=== PATIENT | male | born 1980 | race Caucasian/White ===

== ENCOUNTER 2016-12-06 20:48 | Emergency (ER) | payer OTHER ==
--- NOTE | 2016-12-06 22:06 | ED NURSING NOTES ---
Clinical Report - Nurses [facility] [place] [address] 12/06/2016 20:48 Patient: JAY CAPPS TRIAGE Triage time 21:01. Acuity: LEVEL 4. Chief Complaint: NECK PAIN and BACK PAIN. --21:08 Joce Bonds R.N. 21:00 12/06/16. BP: 125/79. HR: 77. RR: 14. O2 saturation: 98%. Temp: 98 F (oral). Pain level now: 01/18. --21:08 Joce Bonds R.N. Weight: 81.6 kg. Height/Length: 69 inches. BMI: 26.6. --21:06 Joce Bonds R.N. Medications Prazosin HCl Oral. --21:03 Joce Bonds R.N. Valtrex Oral. --21:04 Joce Bonds R.N. Citalopram Hydrobromide Oral. --21:04 Joce Bonds R.N. Omeprazole Oral. --21:04 Joce Bonds R.N. Medication/allergy information source: the patient. --21:08 Joce Bonds R.N. Allergies No Known Drug Allergy. --22:15 Joce Bonds R.N. History Arrived by private vehicle. Historian: patient. ( Neck and mid to upper back pain for about a week, denies injury or trauma. Pain shoots up to the neck with pressure on the back. Worse when turning head.). Onset was gradual. Symptoms still present (1 weeks ago). He has had tingling, (neck). No history of recent trauma. 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 SOCIAL HX: Never smoker. Alcohol use; consumes beer occasionally. --21:08 Joce Bonds R.N. PROBLEMS: Gastroesophageal Reflux Disease. PTSD. --21:05 Joce Bonds R.N. Interventions ID band on patient. To room. --21:08 Joce Bonds R.N. PHYSICAL ASSESSMENT Ambulatory to room. GENERAL / NEURO / PSYCH: Alert. Oriented X 4. Appears in no acute distress. RESPIRATORY: Respirations not labored. Chest nontender. Breath sounds within normal limits. CVS: Normal heart rate and rhythm. Capillary refill less than 2 seconds. GI / : Abdomen soft and nontender. Bowel sounds within normal limits. EXTREMITIES: Sensation intact in extremities. ROM of extremities within normal limits. BACK: Limited ROM of the neck (increasing pain on movement). Soft tissue tenderness. --21:10 Joce Bonds R.N. NURSING PROGRESS NOTES Neuro-vascular extremity check. Head of bed elevated. Call light placed in reach. Side rails up x 1. Bed placed in lowest position. Brakes of bed on. Patient ready for evaluation- chart flagged. --21:11 Jcoe Bonds R.N. DISPOSITION / DISCHARGE Condition at departure: improved. ( pain/spasm is ok when not turning his head). No learning barriers present. Discharge instructions provided and reviewed with the patient. Reviewed medication(s) side effects, precautions, dosing and course information. Prescription(s) given to the patient. Reviewed referral to a primary care physician for followup. Patient verbalized understanding. Written instructions provided in [employer]. The patient was discharged home. He left the Emergency Department ambulatory and via private vehicle. Patient driving. --22:13 Joce Bonds R.N. 22:12 12/06/16. BP: 121/74. HR: 72. RR: 14. O2 saturation: 100%. Temp: 98.3 F (oral). Pain level now: 12/18. --22:13 Joce Bonds R.N. Departure time: 22:14. --22:14 Joce Bonds R.N. Locked/Released at 12/06/2016 22:15 by Joce Bonds R.N.
--- NOTE | 2016-12-06 22:06 | ED CLINICAL REPORT ---
Clinical Report - Physicians/Mid Levels [facility] [address] [place] [address] 12/06/2016 20:48 Patient: JAY CAPPS Time Seen: 21:16. Arrived- By private vehicle. Historian- patient. HISTORY OF PRESENT ILLNESS Chief Complaint: NECK PAIN and BACK PAIN. Modifying factors- worsened by rotation of the head to the right or left, neck flexion, coughing or taking deep breaths. Not relieved by anything. Onset- about 1 week ago and it is still present. It is described as being moderate in degree. It is described as being in the area of the left side of the upper thoracic spine, right side of the cervical spine and right side of the upper thoracic spine, left interscapular area and right interscapular area. The quality is noted to be "pain" (tightness). No bladder dysfunction, bowel dysfunction, sensory loss or motor loss. Additional history - Patient states that the symptoms started vaguely but have become stronger for the last week. He denies fever or injury. 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 Patient denies an injury. No other injury. Similar symptoms previously: None. Recent medical care: Not recently seen/assessed. REVIEW OF SYSTEMS No fever, chills, eye discomfort, headache or sore throat. No cough, difficulty breathing, chest pain, skin rash or abdominal pain. No nausea, vomiting, diarrhea, black stools or difficulty with urination. No urinary frequency, hematuria or bloody stools. All systems otherwise negative, except as recorded above. PAST HISTORY Problems: Gastroesophageal Reflux Disease. PTSD. Additional Surgeries: no known surgeries. Medications: Omeprazole Oral. Citalopram Hydrobromide Oral. Valtrex Oral. Prazosin HCl Oral. Allergies: No Known Drug Allergy. SOCIAL HISTORY Never smoker. Occasional alcohol use. No drug use. ADDITIONAL NOTES The nursing notes have been reviewed. PHYSICAL EXAM Vital Signs: 12/06/2016 21:00 BP: 125/79. HR: 77. RR: 14. O2 saturation: 98%. Temp: 98 F. Pain level now: 8/10. Have been reviewed. Appearance: Alert. No acute distress. HEENT: Normal external inspection. Eyes: Pupils equal, round and reactive to light. Neck: Normal inspection. Neck nontender. Painless ROM. CVS: Normal heart rate and rhythm. Heart sounds normal. Pulses normal. Respiratory: No respiratory distress. Breath sounds normal. Back: Moderate soft tissue tenderness (Pt has tenderness over the trapezius distribution bilaterally.). Mild muscle spasm present in the thoracic area. Mildly limited ROM in the back- in the cervical spine: decreased flexion, right lateral bending and left lateral bending. No vertebral point tenderness. Skin: Skin warm and dry. Normal skin color. No rash. Normal skin turgor. Extremities: Extremities exhibit normal ROM. Extremities nontender. Neuro: (Grossly intact.). LABS, X-RAYS, AND EKG Pulse Oximetry: 12/06/2016 21:00 O2 saturation: 98%. (FIO2 - room air). Interpretation: normal. PROGRESS AND PROCEDURES Course of Care: I discussed with the patient that he does not have any worrisome signs for a serious cause of back pain. We have discussed symptomatic management of his muscle spasms including heat and massage as well as pharmacotherapy as needed. Patient did decline to have any analgesia in the emergency department. I did discuss with him that should his symptoms continue on for more than another couple of weeks, he should see his primary care physician for reevaluation and discuss whether an MRI would be appropriate at that time. At this point in time I do not find evidence that the patient is in need of further workup in the emergency department. Patient counseled in person regarding the patient's stable condition, diagnosis and need for follow-up. Concerns were addressed. Old medical records reviewed. Disposition: Discharged. Condition: stable. CLINICAL IMPRESSION Acute nontraumatic thoracic back pain. INSTRUCTIONS Apply ice for 20 minutes three times a day as needed and until better. Don't apply ice directly to skin and don't use while asleep. (Try heat and massage to help with your symptoms, as well.). Warnings: GENERAL WARNINGS: Return or contact your physician immediately if your condition worsens or changes unexpectedly, if not improving as expected, or if other problems arise. Your Current Medications: CONTINUE TAKING THE FOLLOWING MEDICATIONS: Citalopram Hydrobromide Oral. Omeprazole Oral. Prazosin HCl Oral. Valtrex Oral. Prescription Medications: Hydrocodone/APAP 5mg / 325mg: take 1-2 orally every 4 hours as needed for pain. Dispense ten (10). No refill. Flexeril 10 mg: take 1 orally every 8 hours as needed for muscle spasm or pain. Dispense ten (10). No refills. Substitution is permissible. Follow-up: Follow up with your doctor in two weeks if not better. Understanding of the discharge instructions verbalized by patient. (Electronically signed by Anna Oviedo MD 12/07/2016 5:01)
--- NOTE | 2016-12-06 22:06 | ED NURSING NOTES ---
Clinical Report - Nurses [facility] [place] [address] 12/06/2016 20:48 Patient: JAY CAPPS TRIAGE Triage time 21:01. Acuity: LEVEL 4. Chief Complaint: NECK PAIN and BACK PAIN. --21:08 Joce Bonds R.N. 21:00 12/06/16. BP: 125/79. HR: 77. RR: 14. O2 saturation: 98%. Temp: 98 F (oral). Pain level now: 01/18. --21:08 Joce Bonds R.N. Weight: 81.6 kg. Height/Length: 69 inches. BMI: 26.6. --21:06 Joce Bonds R.N. Medications Prazosin HCl Oral. --21:03 Joce Bonds R.N. Valtrex Oral. --21:04 Joce Bonds R.N. Citalopram Hydrobromide Oral. --21:04 Joce Bonds R.N. Omeprazole Oral. --21:04 Joce Bonds R.N. Medication/allergy information source: the patient. --21:08 Joce Bonds R.N. Allergies No Known Drug Allergy. --22:15 Joce Bonds R.N. History Arrived by private vehicle. Historian: patient. ( Neck and mid to upper back pain for about a week, denies injury or trauma. Pain shoots up to the neck with pressure on the back. Worse when turning head.). Onset was gradual. Symptoms still present (1 weeks ago). He has had tingling, (neck). No history of recent trauma. 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 Took ibuprofen. SOCIAL HX: Never smoker. Alcohol use; consumes beer occasionally. --21:08 Joce Bonds R.N. PROBLEMS: Gastroesophageal Reflux Disease. PTSD. --21:05 Joce Bonds R.N. Interventions ID band on patient. To room. --21:08 Joce Bonds R.N. PHYSICAL ASSESSMENT Ambulatory to room. GENERAL / NEURO / PSYCH: Alert. Oriented X 4. Appears in no acute distress. RESPIRATORY: Respirations not labored. Chest nontender. Breath sounds within normal limits. CVS: Normal heart rate and rhythm. Capillary refill less than 2 seconds. GI / : Abdomen soft and nontender. Bowel sounds within normal limits. EXTREMITIES: Sensation intact in extremities. ROM of extremities within normal limits. BACK: Limited ROM of the neck (increasing pain on movement). Soft tissue tenderness. --21:10 Joce Bonds R.N. NURSING PROGRESS NOTES Neuro-vascular extremity check. Head of bed elevated. Call light placed in reach. Side rails up x 1. Bed placed in lowest position. Brakes of bed on. Patient ready for evaluation- chart flagged. --21:11 Joce Bonds R.N. DISPOSITION / DISCHARGE Condition at departure: improved. ( pain/spasm is ok when not turning his head). No learning barriers present. Discharge instructions provided and reviewed with the patient. Reviewed medication(s) side effects, precautions, dosing and course information. Prescription(s) given to the patient. Reviewed referral to a primary care physician for followup. Patient verbalized understanding. Written instructions provided in [place]. The patient was discharged home. He left the Emergency Department ambulatory and via private vehicle. Patient driving. --22:13 Joce Bonds R.N. 22:12 12/06/16. BP: 121/74. HR: 72. RR: 14. O2 saturation: 100%. Temp: 98.3 F (oral). Pain level now: 12/18. --22:13 Joce Bonds R.N. Departure time: 22:14. --22:14 Joce Bonds R.N. Locked/Released at 12/06/2016 22:15 by Joce Bonds R.N.
--- NOTE | 2016-12-07 05:01 | ED MAR SUMMARY ---
..... Medication Administration Record [facility] [address] [place], [place] [id number] Patient: JAY CAPPS Visit ID: [id number] 36y, M Weight: 81.6 kg Height/Length: 69 in BMI: 26.6 ALLERGIES: No Known Drug Allergy
--- NOTE | 2016-12-07 05:01 | ED MAR SUMMARY ---
..... Medication Administration Record [facility] [address] [place], [place] [id number] Patient: JAY CAPPS Visit ID: [id number] 36y, M Weight: 81.6 kg Height/Length: 69 in BMI: 26.6 ALLERGIES: No Known Drug Allergy
--- NOTE | 2016-12-07 05:01 | ED DISCHARGE INSTRUCTIONS ---
Patient: JAY CAPPS General Instructions [facility] VisitID: [id number] [place] [address] 36y, M Registration Date/Time: 12/06/2016 Acute nontraumatic thoracic back pain. INSTRUCTIONS Apply ice for 20 minutes three times a day as needed and until better. Don't apply ice directly to skin and don't use while asleep. (Try heat and massage to help with your symptoms, as well.). Warnings: GENERAL WARNINGS: Return or contact your physician immediately if your condition worsens or changes unexpectedly, if not improving as expected, or if other problems arise. Your Current Medications: CONTINUE TAKING THE FOLLOWING MEDICATIONS: Citalopram Hydrobromide Oral. Omeprazole Oral. Prazosin HCl Oral. Valtrex Oral. Prescription Medications: Hydrocodone/APAP 5mg / 325mg: take 1-2 orally every 4 hours as needed for pain. Dispense ten (10). No refill. Flexeril 10 mg: take 1 orally every 8 hours as needed for muscle spasm or pain. Dispense ten (10). No refills. Substitution is permissible. Follow-up: Follow up with your doctor in two weeks if not better. Understanding of the discharge instructions verbalized by patient. ADDITIONAL INFORMATION Back Spasm [No Trauma] Spasm of the back muscles can occur after a sudden forceful twisting or bending force (such as in a car accident), after a simple awkward movement, or after lifting something heavy with poor body positioning. In either case, muscle spasm is often present and adds to the pain.Sleeping in an awkward position or on a poor quality mattress can also cause this. Some persons respond to emotional stress by tensing the muscles of their back. The treatment described below will usually help the pain to go away in 5-7 days. Pain that continues may require further evaluation or other types of treatment such as physical therapy. Unless you had a physical injury (for example, a car accident or fall), x-rays are usually not ordered for the initial evaluation of back pain. If pain continues and does not respond to medical treatment, x-rays and other tests may be performed at a later time. Home Care: You may need to stay in bed the first few days. But, as soon as possible, begin sitting or walking to avoid problems with prolonged bed rest (muscle weakness, worsening back stiffness and pain, blood clots in the legs). When in bed, try to find a position of comfort. A firm mattress is best. Try lying flat on your back with pillows under your knees. You can also try lying on your side with your knees bent up toward your chest and a pillow between your knees. Avoid prolonged sitting. This puts more stress on the lower back than standing or walking. Some persons find relief with heat (hot shower, hot bath, or heating pad) and massage, while others prefer cold packs (crushed or cubed ice in a plastic bag, wrapped in a towel). Try both and use the method that feels best for 20 minutes several times a day. You may use acetaminophen (Tylenol) or ibuprofen (Motrin, Advil) to control pain, unless another pain medicine was prescribed. [NOTE: If you have chronic liver or kidney disease or ever had a stomach ulcer or GI bleeding, talk with your doctor before using these medicines.] Gentle stretching will help your back heal faster. Perform this simple routine 2-3 times a day until your back is feeling better. LOW BACK STRETCH Lie on your back with your knees bent and both feet on the ground. Slowly raise your left knee to your chest as you flatten your lower back against the floor. Hold for 5 seconds. Relax and repeat the exercise with your right knee. Do 10 of these exercises for each leg. Repeat, hugging both knees to your chest at the same time. Be aware of safe lifting methods and do not lift anything over 15 pounds until all the pain is gone. Follow Up with your doctor or this facility if your symptoms do not start to improve after one week. Physical therapy or further tests may be needed. [NOTE: If x-rays were taken, they will be reviewed by a radiologist. You will be notified of any new findings that may affect your care.] Return Promptly or contact your doctor if any of the following occurs: Pain becomes worse or spreads to your legs Weakness or numbness in one or both legs Loss of bowel or bladder control Numbness in the groin or genital area Unexplained fever over 100.4F (38.0C) Burning or pain when passing urine You have been given the following additional information: Back Spasm, No Trauma (Electronically signed by Anna Oviedo MD 12/07/2016 5:01)
--- NOTE | 2016-12-07 05:01 | ED MED RECONCILIATION SUMMARY ---
Patient: JAY CAPPS Medication Reconciliation Report [facility] VisitID: [id number] [address] [place] [address] 36y, M Registration Date/Time: 12/06/2016 Weight: 81.6 kg Height/Length: 69 in. BMI: 26.6 ALLERGIES: No Known Drug Allergy The patient's Home Medications are listed below: CONTINUE TAKING THE FOLLOWING MEDICATIONS: Citalopram Hydrobromide Oral Omeprazole Oral Prazosin HCl Oral Valtrex Oral The source(s) of the original Home Medication information: patient The following Medications were given to the patient in the Emergency Department: None. The following Medications were prescribed to the patient: Hydrocodone/APAP 5mg / 325mg: take 1-2 orally every 4 hours as needed for pain. Dispense ten (10). No refill. -- Anna Oviedo MD Flexeril 10 mg: take 1 orally every 8 hours as needed for muscle spasm or pain. Dispense ten (10). No refills. Substitution is permissible. -- Anna Oviedo MD
--- NOTE | 2016-12-07 05:01 | ED MED RECONCILIATION SUMMARY ---
Patient: JAY CAPPS Medication Reconciliation Report [facility] VisitID: [id number] [address] [place] [address] 36y, M Registration Date/Time: 12/06/2016 Weight: 81.6 kg Height/Length: 69 in. BMI: 26.6 ALLERGIES: No Known Drug Allergy The patient's Home Medications are listed below: CONTINUE TAKING THE FOLLOWING MEDICATIONS: Citalopram Hydrobromide Oral Omeprazole Oral Prazosin HCl Oral Valtrex Oral The source(s) of the original Home Medication information: patient The following Medications were given to the patient in the Emergency Department: None. The following Medications were prescribed to the patient: Hydrocodone/APAP 5mg / 325mg: take 1-2 orally every 4 hours as needed for pain. Dispense ten (10). No refill. -- Anna Oviedo MD Flexeril 10 mg: take 1 orally every 8 hours as needed for muscle spasm or pain. Dispense ten (10). No refills. Substitution is permissible. -- Anna Oviedo MD
== END 2016-12-06 22:19 | disposition home or self-care (01) ==
LOC: ED SRH 20:48
DX: M54.6 Pain in thoracic spine (principal); K21.9 Gastro-esophageal reflux disease without esophagitis; Z79.899 Other long term (current) drug therapy